=== PATIENT | female | born 1975 | race Caucasian/White ===

== ENCOUNTER → 2020-08-09 09:37 | Outpatient (CLI) | payer OTHER, SELFPAY | PROVIDERS: PCP Family Medicine; Visit Provider Family Medicine | DX: G47.30 Sleep apnea, unspecified (principal); R53.83 Other fatigue | CPT/HCPCS: G0399 ==

== ENCOUNTER → 2020-09-19 16:34 | Outpatient (CLI) | payer OTHER, SELFPAY ==
[2020-09-19 18:07] LABS: Thyroid Stimulating Hormone 1.15 uIU/mL (0.465-4.68)
[2020-09-19 18:11] LABS: Ferritin 32.4 ng/ml (6.24-137)
== END ==
PROVIDERS: Visit Provider Specialist
DX: E83.10 Disorder of iron metabolism, unspecified (principal); E66.9 Obesity, unspecified; Z68.41 Body mass index [BMI] 40.0-44.9, adult
CPT/HCPCS: 36415; 82728; 84443

== ENCOUNTER → 2020-10-16 12:10 | Outpatient (CLI) | payer OTHER, SELFPAY ==
--- NOTE | 2020-10-16 12:10 | US_ITS ---
PROCEDURE: US THYROID CLINICAL INDICATION: thyromegaly, weight gain 50# COMPARISON: No exams were available for comparison FINDINGS: Right lobe: 4.3 x 1.7 x 1.9 centimeters Left lobe: 4.3 x 1.3 x 1.4 centimeters Isthmus: 0.4 centimeters Additional findings: 2 isoechoic nodules are noted in the right lobe of thyroid gland measuring up to 1.6 x 1.3 centimeters, demonstrate well-defined margins. Single nodule is noted in the left lobe of thyroid gland measuring 1.3 x 0.8 centimeters, demonstrates well-defined margins and vascularity. IMPRESSION: Bilateral thyroid nodules measuring up to 1.6 x 1.3 centimeters. Follow-up ultrasound in 6-12 months is recommended. Dictated by: Jie Souza 10/16/2020 15:32 Jie Souza in [facility] 10/16/2020 15:32
== END ==
PROVIDERS: PCP Family Medicine; Visit Provider Specialist
DX: Z68.41 Body mass index [BMI] 40.0-44.9, adult (principal); E01.0 Iodine-deficiency related diffuse (endemic) goiter; R53.82 Chronic fatigue, unspecified
CPT/HCPCS: 76536

== ENCOUNTER → 2020-12-18 18:07 | Outpatient (CLI) | payer OTHER, SELFPAY | LOC: LAB 18:07 → SL 19:32 | PROVIDERS: PCP Family Medicine; Visit Provider Specialist | DX: Z01.812 Encounter for preprocedural laboratory examination (principal); Z11.52 Encounter for screening for COVID-19; I10 Essential (primary) hypertension; E66.9 Obesity, unspecified; J44.9 Chronic obstructive pulmonary disease, unspecified; G47.30 Sleep apnea, unspecified; R06.83 Snoring; R40.0 Somnolence; G47.61 Periodic limb movement disorder | CPT/HCPCS: 95810; U0003 ==